=== PATIENT | male | born 1995 | race Two or more races ===

== ENCOUNTER 2024-06-17 13:35 | Emergency (ER) | payer MEDICAID ==
[~2024-06-17] VITALS: Ht 167.6 cm; Wt 63.5 kg
[2024-06-17] MEDS ORDERED: TDAP [DIPH/PERTUSSIS/TET] 0.5 ML VIAL IM ONE (14:13)
[2024-06-17] MEDS: TDAP [DIPH/PERTUSSIS/TET] 0.5 ML VIAL IM ONE (14:23)
[2024-06-17] MEDS ORDERED: LIDOCAINE 1%-EPI 1:100,000 20 ML VIAL ONE (14:44)
[2024-06-17 16:38] VITALS: BP 122/85; TEMP 98; O2SAT 98
== END 2024-06-17 16:39 | disposition home or self-care (01) ==
LOC: ER 13:40
DX: S01.01XA Laceration without foreign body of scalp, initial encounter (principal); W11.XXXA Fall on and from ladder, initial encounter; Y93.89 Activity, other specified; Y92.89 Other specified places as the place of occurrence of the external cause; Y99.8 Other external cause status
CPT/HCPCS: 99285; 12002; 90471; 90715; 73030; A6403; J3490

== ENCOUNTER 2024-06-28 16:30 | Emergency (ER) | payer MEDICAID ==
[~2024-06-28] VITALS: Ht 170.2 cm; Wt 68.0 kg
[2024-06-28 16:32] VITALS: BP 132/81; TEMP 98.3
[2024-06-28 16:48] VITALS: O2SAT 99
== END 2024-06-28 16:48 | disposition home or self-care (01) ==
LOC: ER 16:33
DX: S01.01XD Laceration without foreign body of scalp, subsequent encounter (principal); Z48.02 Encounter for removal of sutures; X58.XXXD Exposure to other specified factors, subsequent encounter